=== PATIENT | female | born 1975 | race African-American/Black ===

== ENCOUNTER 2022-05-28 06:50 | Emergency (ER) | payer BC, SELFPAY ==
--- NOTE | ~2022-05-28 | US_ITS ---
EXAMINATION: US venous doppler [facility] DATE: 05/28/2022 07:51 INDICATION: Left lower limb pain and erythema TECHNIQUE: Grayscale ultrasound images without and with compression and Doppler ultrasound images of the left lower extremity veins were obtained. COMPARISON: None. FINDINGS: The visualized portions of left common femoral vein, profunda (deep) femoral vein, femoral vein, popl iteal vein, peroneal veins, posterior tibial veins, gastrocnemius vein and greater saphenous vein out flow are patent. IMPRESSION: 1. No deep venous thrombosis in the left lower limb. Reviewed, dictated and finalized at location A.
--- NOTE | ~2022-05-28 | XR_ITS ---
EXAMINATION: XR ankle LT min 3V DATE: 05/28/2022 07:31 INDICATION: Medial left ankle pain, swelling and bruising. TECHNIQUE: Anteroposterior, oblique, mortise, and lateral views of the left ankle were obtained. COMPARISON: None. FINDINGS: Alignment is normal. No fracture. Osteoarthritis with nonuniform joint space narrowing, mild at the calcaneocuboid joint and minimal at the left ankle joint. Small Achilles calcaneal spur. No ankle ronnie nt effusion. Diffuse soft tissue swelling about the left ankle. IMPRESSION: 1. No left ankle joint effusion or acute osseous abnormality. Reviewed, dictated and finalized at location A.
[2022-05-28 07:02] VITALS: BP 181/80; PULSE 92; RESP 17; TEMP 36.3; O2SAT 100
--- NOTE | 2022-05-28 08:40 | ED.LOWEXIN ---
HPI - Extremity Injury (Lower) General Chief Complaint: Extremity Injury, Lower Stated Complaint: left leg pain Time Seen by Provider: 05/28/22 07:01 Source: RN notes reviewed History of Present Illness HPI Narrative: Patient presents emerged department from home for left ankle pain and swelling. Patient states 2 days ago he began to note some swelling of his left medial ankle states he had some mild erythema around the ankle as well and it goes up just past the left ankle he denies any known trauma or injury. He states that it does hurt to walk on the ankle but he is able to walk on the ankle and states that it does not hurt to move the ankle when he is sitting she denies any known trauma or injury. He denies any fevers or chills numbness or tingling in the extremities chest pain shortness of breath or any other symptoms. States he has been taking Tylenol with minimal relief Related Data Home Medications Medication Instructions Recorded Confirmed glipizide 5 mg tablet mg 05/28/22 metformin 500 mg tablet,extended mg PO 05/28/22 release 24 hr Allergies Allergy/AdvReac Type Severity Reaction Status Date / Time No Known Allergies Allergy Verified 05/28/22 07:04 Review of Systems Review of Systems: Gen.: Denies fevers or chills Respiratory: Denies shortness of breath or cough CV: Denies chest pain Musculoskeletal: See HPI Neuro: Denies numbness, tingling, weakness or focal weakness Skin: Denies rash Except as documented, all other systems reviewed and negative [facility] Past Medical History Medical History (Updated 05/28/22 @ 08:43 by Sidney Jade DO) Patient denies significant medical history Social History Social History (Updated 05/28/22 @ 08:41 by Sidney Jade DO) Smoking status: Never smoker Exam Narrative: APPEARANCE: No acute distress, nontoxic, resting in bed Eyes: EOMI HEENT: Normocephalic, atraumatic, RESPIRATORY: No respiratory distress MUSCULOSKELETAl: The left medial ankle has mild swelling present with some mild overlying erythema that extends just distal past the ankle over the medial aspect there is no swelling of the anterior lateral or posterior ankle and no other erythema other than over the medial ankle there is no swelling of the foot and no erythema the foot dorsalis pedis pulse 2+ mild tenderness over the medial ankle no tenderness of the anterior lateral ankle no tenderness of the knee full range of motion of the ankle without pain dorsalis pedis pulse 2+ neurovascular intact there are no open wounds or fluctuance NEURO: Awake and alert. Following commands, speech normal, no focal deficits SKIN:: Warm, dry. Normal Color no rash or lesions Course Course Emergency Course: Discussed with patient results of workup and diagnosis. Discussed need for follow-up with primary care, proper use of medication, and reasons to return to the emergency department. Patient understands and agrees to current treatment plan Vital Signs Vital signs: Vital Signs Temperature 97.4 F L 05/28/22 07:02 Pulse Rate 92 05/28/22 07:02 Respiratory Rate 17 05/28/22 07:02 Blood Pressure 181/80 H 05/28/22 07:02 Pulse Oximetry 100 05/28/22 07:02 Oxygen Delivery Room Air 05/28/22 07:02 Temperature 97.4 F L 05/28/22 07:02 Pulse Rate 92 05/28/22 07:02 Respiratory Rate 17 05/28/22 07:02 Blood Pressure 181/80 H 05/28/22 07:02 Pulse Oximetry 100 05/28/22 07:02 Oxygen Delivery Room Air 05/28/22 07:02 MDM - Extremity Injury (Lower) [facility] Narrative Medical decision making narrative: [facility] patient with swelling over the medial ankle x-rays and lower extremity ultrasound show no fractures or signs of blood clot question the possibility of gout versus a localized cellulitis will place on steroids as well as antibiotics and follow-up as an outpatient Imaging Data Radiologist's impression: ITS Impressions Ankle X-Ray 05/28/22 07:33 IMPRESSION: 1. No left ankle j
[2022-05-28] MEDS: CEPHALEXIN 500 MG CAPSULE PO (08:41)
== END 2022-05-28 09:15 | disposition home or self-care (01) ==
PROVIDERS: Emergency Provider Emergency Medicine
DX: L03.116 Cellulitis of left lower limb (principal)
CPT/HCPCS: 73610; 93971; 99284; A9270